=== PATIENT | female | born 1955 | race Caucasian/White ===

== ENCOUNTER 2017-06-03 20:30 | Emergency (ER) | payer OTHER ==
[~2017-06-03] VITALS: Ht 154.9 cm; Wt 52.2 kg
[~2017-06-03 20:30] MED LIST: FLUOXETINE HCL40 MG PO; HYDROCODON-ACE1 EAC5 PO; LIPITOR10 MG PO; MEDROLDOSEPACK PO; NORCO 10-325 T1 EACH PO; NORCO 5-325 TA1 EACH PO; PENICILLIN VK500 M1 PO; PERCOCET 5-3251 EACH PO; PREDNISONE 20 M20 MG PO; PROZAC20 MG PO; PROZAC40 MG PO; TUMS; VITAMIN D2000 UNIT PO; ZANAFLEX4 MG PO
[2017-06-03] MEDS ORDERED: VALIUM5 MG PO (22:35)
[2017-06-03] MEDS ORDERED: TORADOL 10 MG T10 MG PO (22:35)
[2017-06-03 22:43] VITALS: BP 102/61
== END 2017-06-03 22:48 | disposition home or self-care (01) ==
LOC: ER 20:30
DX: G44.209 Tension-type headache, unspecified, not intractable (principal); Z91.041 Radiographic dye allergy status

== ENCOUNTER 2017-07-13 15:14 | Emergency (ER) | payer OTHER ==
[~2017-07-13] VITALS: Ht 165.1 cm; Wt 56.7 kg
--- NOTE | ~2017-07-13 | EKG ---
[address] [address] ELECTROCARDIOGRAM REPORT Name: GRICELDA TIPTON Room #: DEP [facility]#: [id number] Admission: 07/13/17 Attend Phys: Discharge: 07/13/17 Date of : 55 Report #: [id number] THIS REPORT FOR: //name// [facility] ED Test Date: 2017-07-13 Test Time: 15:39:13 Pat Name: GRICELDA TIPTON Department: Room: Gender: F English Faculty Member: Alea PANDEY : 1955 Requested By: Emerita Valencia Order Number: [id number] MD: Boyd Haynes Measurements Intervals [place] Rate: 69 P: 7 MS: 151 QRS: 61 QRSD: 111 T: 58 QT: 428 QTc: 459 Interpretive Statements Sinus rhythm RSR' in V1 or V2, right VCD or RVH Compared to ECG 03/17/2007 01:20:11 Right ventricular hypertrophy now present RSR' in V1 or V2 now present Right-axis deviation no longer present Electronically Signed On 07-14-2017 7:51:12 CDT by Boyd Haynes [email or web address] <ELECTRONICALLY SIGNED> By: Boyd Haynes MD 07/14/17 [id number] Boyd Haynes MD /EPI
[~2017-07-13 15:14] MED LIST changes: +TORADOL 10 MG T10 MG PO; +VALIUM5 MG PO
[2017-07-13 15:41] LABS: ABSOLUTE NEUTROPHILS 4.2 thou/uL (1.4-8.2); BASOPHILS 0.3 % (0.0-2.0); EOSINOPHILS 1.7 % (0.0-3.0); HEMATOCRIT 36.3 % (37.0-47.0); HEMOGLOBIN 12.2 gm/dL (12.0-15.0); LYMPHOCYTES 24.8 % (24.0-44.0); MCH 29.5 pg (26.0-34.0); MCHC 33.6 g/dL (28.0-37.0); MONOCYTES 7.7 % (1.0-8.0); PLATELET COUNT 159 thou/uL (150-400); POLYS 65.5 % (36.0-66.0); RBC 4.13 mil/uL (4.20-5.00); RDW 14.2 % (10.5-14.5); WBC 6.4 thou/uL (4.0-11.0)
[2017-07-13 15:53] LABS: ANION GAP 7 mmol/L (7-16); BUN 16 mg/dL (7-18); CALCIUM 9.2 mg/dL (8.5-10.1); CHLORIDE 104 mmol/L (98-107); CO2 28 mmol/L (21-32); CREATININE 0.7 mg/dL (0.6-1.0); GLUCOSE 115 mg/dL (74-106); SODIUM 139 mmol/L (136-145)
[2017-07-13 16:01] LABS: TROPONIN-I < 0.04 ng/mL (<0.06)
[2017-07-13 16:04] LABS: URINE BILIRUBIN NEGATIVE (Negative); URINE BLOOD TRACE (Negative); URINE CLARITY CLEAR; URINE COLOR YELLOW; URINE GLUCOSE-RANDOM* NEGATIVE (Negative); URINE KETONES NEGATIVE (Negative); URINE LEUKOCYTES 1+ (Negative); URINE NITRITE NEGATIVE (Negative); URINE PROTEIN (DIPSTICK) NEGATIVE (Negative); URINE UROBILINOGEN 0.2 E.U./dl (0.2-1.0)
[2017-07-13] MEDS ORDERED: VALIUM5 MG PO (16:19)
[2017-07-13 16:20] LABS: SQUAMOUS 0-3 Few /LPF (0-3)
[2017-07-13 16:21] LABS: BACTERIA 1-9 Few /HPF (None Seen); CASTS None Seen /LPF (None Seen); CRYSTALS None Seen /LPF (None Seen); URINE RBC 0-2 Rare /HPF (0-2); URINE WBC 6-15 Few /HPF (0-5)
[2017-07-13] MEDS ORDERED: MACROBID 100 M100 M1 PO (16:24)
[2017-07-13 17:19] VITALS: BP 85/55
== END 2017-07-13 17:20 | disposition home or self-care (01) ==
LOC: ER 15:14
PROVIDERS: Emergency Medicine
DX: M54.2 Cervicalgia (principal); G89.29 Other chronic pain; N39.0 Urinary tract infection, site not specified; R42 Dizziness and giddiness; E78.00 Pure hypercholesterolemia, unspecified; F32.9 Major depressive disorder, single episode, unspecified; R51 Headache; Z91.041 Radiographic dye allergy status

== ENCOUNTER 2018-01-12 20:02 | Emergency (ER) | payer OTHER ==
[~2018-01-12] VITALS: Ht 165.1 cm; Wt 56.7 kg
[~2018-01-12 20:02] MED LIST changes: +MACROBID 100 M100 M1 PO
[2018-01-12] MEDS ORDERED: NAPROSYN500 MG PO (20:30)
[2018-01-12] MEDS ORDERED: VALIUM5 MG PO (20:30)
[2018-01-12 20:47] VITALS: BP 110/65
== END 2018-01-12 20:48 | disposition home or self-care (01) ==
LOC: ER 20:02
DX: S16.1XXA Strain of muscle, fascia and tendon at neck level, initial encounter (principal); G44.209 Tension-type headache, unspecified, not intractable; G89.29 Other chronic pain; Z91.041 Radiographic dye allergy status; X58.XXXA Exposure to other specified factors, initial encounter; Y93.89 Activity, other specified; Y92.89 Other specified places as the place of occurrence of the external cause; Y99.8 Other external cause status

== ENCOUNTER 2020-03-25 09:33 | Emergency (ER) | payer OTHER ==
[~2020-03-25] VITALS: Ht 170.2 cm; Wt 86.2 kg
--- NOTE | ~2020-03-25 | EMS ---
[address] [address] EMS Patient Care Report Name: GRICEL[facility]IPTON [id number] Admission: 03/25/20 Attend Phys: Discharge: Date of : 55 Report #: [id number] THIS REPORT FOR: //name// Report Transmitted: 03/25/2020 09:48 EMS Care Summary [place], [place]/[facility] Incident [id number] @ 03/25/2020 09:06 Incident Location [address] [place] [address] Patient GRICELDA TIPTON Female, 65 Years 1955 Patient Address [address] [place] [address] Patient History Anxiety, Patient Allergies No known allergies, Patient Medications Fluoxetine, Mirtazapine, Lorazepam, Chief Complaint SOB/COUGH Disposition Transported No Lights/[place] Dispatch Reason Sick Person Transported To [facility] Narrative UPON ARRIVAL PT SITTING UPRIGHT ON COUCH CONSCIOUS AND ALERT. PT STATES SHE FELT VERY TIRED LAST NIGHT WHEN SHE WENT TO BED THAN WOKE UP THIS MORNING WITH SOB, COUGH, CHILLS AND TIREDNESS. PT HAS NO KNOWN COVID EXPOSURE. PT TRANSPORTED TO [facility]. [address] [address] EMS Patient Care Report Name: GRICELDA TIPTON Room #: REG ER Alea#: [id number] Admission: 03/25/20 Attend Phys: Discharge: Date of : 55 Report #: [id number] Initial Vitals @09:25P: 94,R: 20,BP: 120/81,GCS: 15,CO: 0,SpO2: 96,Revised Trauma: 12, @09:17P: 102,R: 20,BP: 137/46,Pain: 0/10,GCS: 15,SpO2: 98,Revised Trauma: 12, Assessments @09:11MENTAL:Person Oriented,Time Oriented,Place Oriented,Event Oriented,SKIN:HEENT:Head/Face: No Abnormalities,LUNG SOUNDS:General: No Abnormalities,ABDOMEN:General: No Abnormalities,PELVIS//GI:EXTREMITIES:Left Arm: No Abnormalities,Right Arm: No Abnormalities,Left Leg: No Abnormalities,Right Leg: No Abnormalities,PULSE:Radial: 2+ Normal,NEURO:No Abnormalities, Impression Shortness of breath Procedures @09:11ALS AssessmentResponse: UnchangedSucceeded Timeline 09:04,Call Received 09:04,Dispatch Notified 09:06,Dispatched 09:07,En Route 09:09,On Scene 09:10,At Patient 09:11,ALS Assessment,Response: UnchangedSucceeded, 09:17,BP: 137/46 M,PULSE: 102,RR: 20 R,SPO2: 98 Ox,ETCO2: ,BG: ,PAIN: 0,GCS: 15, 09:17,Depart Scene 09:25,BP: 120/81 M,PULSE: 94,RR: 20 R,SPO2: 96 Ox,ETCO2: ,BG: ,PAIN: ,GCS: 15, 09:29,At Destination 09:43,Call Closed Disclaimer v1.1 Copyright 2020 [employer] This EMS Care Summary contains data elements from the applicable legal record (which may be displayed differently). It is designed to provide pertinent information for the following purposes: continuity of care, clinical quality, and state data reporting. The complete legal record is available to ED staff and administrators of the receiving hospital in [employer]s Patient Tracker. All data is provided "as is."
[~2020-03-25 09:33] MED LIST changes: +NAPROSYN500 MG PO
[2020-03-25] MEDS ORDERED: REMERON 30 MG T30 M1 PO (09:58)
--- NOTE | 2020-03-25 10:33 | EKG ---
[place] [address] [place] [address] ELECTROCARDIOGRAM REPORT Name: GRICELDA TIPTON Room #: REG [facility]#: [id number] Admission: 03/25/20 Attend Phys: Discharge: Date of : 55 Report #: [id number] [facility] ED Test Date: 2020-03-25 Test Time: 10:07:17 Pat Name: GRICELDA TIPTON Department: Room: Gender: F Resident Intern: : 1955 Requested By: Shadi Soto Order Number: [id number] MD: Kadeem Jacobs Measurements Intervals [place] Rate: 87 P: 38 NC: 159 QRS: 44 QRSD: 111 T: 53 QT: 387 QTc: 466 Interpretive Statements Sinus rhythm RSR' in V1 or V2, right VCD or RVH Compared to ECG 07/13/2017 15:39:13 No significant changes Electronically Signed On 03-25-2020 10:33:05 [employer] by Kadeem Jacobs [email or web address] <ELECTRONICALLY SIGNED> By: Kadeem Jacobs MD, [facility] 03/25/20 1033 [id number] Kadeem Jacobs MD, FACC /EPI
[2020-03-25 10:35] LABS: ABSOLUTE NEUTROPHILS 4.2 thou/uL (1.4-8.2); BASOPHILS 0.3 % (0.0-2.0); EOSINOPHILS 1.7 % (0.0-3.0); HEMATOCRIT 36.6 % (37.0-47.0); HEMOGLOBIN 11.8 gm/dL (12.0-15.0); LYMPHOCYTES 26.6 % (24.0-44.0); MCH 27.3 pg (26.0-34.0); MCHC 32.3 g/dL (28.0-37.0); MCV 84.5 fL (80.0-100.0); MONOCYTES 6.4 % (1.0-8.0); RBC 4.33 mil/uL (4.20-5.00); RDW 16.7 % (10.5-14.5); WBC 6.4 thou/uL (4.0-11.0)
[2020-03-25 10:44] LABS: CALCIUM 9.3 mg/dL (8.5-10.1); CREATININE 0.9 mg/dL (0.6-1.0); POTASSIUM 3.9 mmol/L (3.5-5.1)
[2020-03-25 11:30] LABS: LARGE PLATELETS FEW; PLATELET COUNT 148 thou/uL (150-400)
[2020-03-25 12:28] LABS: URINE BILIRUBIN NEGATIVE (Negative); URINE BLOOD TRACE (Negative); URINE CLARITY CLEAR; URINE COLOR YELLOW; URINE GLUCOSE-RANDOM* NEGATIVE (Negative); URINE KETONES NEGATIVE (Negative); URINE LEUKOCYTES-REFLEX TRACE (Negative); URINE NITRITE-REFLEX NEGATIVE (Negative); URINE PROTEIN (DIPSTICK) NEGATIVE (Negative); URINE SPECIFIC GRAVITY 1.015 (1.005-1.035); URINE UROBILINOGEN 0.2 E.U./dl (0.2-1.0)
[2020-03-25 12:58] VITALS: BP 104/69
== END 2020-03-25 13:07 | disposition home or self-care (01) ==
LOC: ER 09:33
PROVIDERS: Emergency Medicine
DX: R53.83 Other fatigue (principal); J02.9 Acute pharyngitis, unspecified; R09.81 Nasal congestion; Z79.899 Other long term (current) drug therapy; Z91.041 Radiographic dye allergy status; Z20.828 Contact with and (suspected) exposure to other viral communicable diseases